=== PATIENT | female | born 1955 | race Caucasian/White ===

== ENCOUNTER 2017-06-25 20:09 | Inpatient (IN) | payer OTHER ==
[~2017-06-25] VITALS: Ht 165.1 cm; Wt 85.5 kg
--- NOTE | 2017-06-25 20:20 | NUR ---
Pt c/o chest pain/pressure radiating to neck chin and right ear. Hx MVP. Pt denies SOB, dizziness, n/v, no other complaints, no distress noted. Pt placed on monitor, EKG -- given to MD, IV 20g right AC, Blood drawn and given to laboratory cureman.
[2017-06-25 20:37] LABS: BASOPHILS % (AUTO) 0.3 % (0.0-2.0); EOSINOPHILS # (AUTO) 0.1 K/uL (0.0-0.7); EOSINOPHILS % (AUTO) 1.9 % (0.0-7.0); HEMATOCRIT 41.9 % (37-47); HEMOGLOBIN 14.1 G/DL (12.0-16.0); LYMPHOCYTES # (AUTO) 2.6 K/UL (0.8-4.8); LYMPHOCYTES % (AUTO) 45.4 % (20.5-51.5); MEAN CORPUSCULAR HEMOGLOBIN 28.7 UUG (27.0-31.0); MEAN CORPUSCULAR HGB CONC 34 g/dL (32.0-37.0); MEAN CORPUSCULAR VOLUME 85.5 FL (81.0-99.0); MONOCYTES # (AUTO) 0.5 K/UL (0.1-1.30); NEUTROPHILS # (AUTO) 2.5 K/UL (1.8-8.9); NEUTROPHILS % (AUTO) 44.4 % (38.5-71.5); PLATELET COUNT (AUTO) 160 K/UL (150-450); WHITE BLOOD COUNT (AUTO) 5.7 K/UL (4.0-11.2)
[2017-06-25 20:45] LABS: CREATININE 1.2 mg/dL (0.6-1.3); POTASSIUM 3.6 mmol/L (3.5-5.1)
[2017-06-25 20:57] LABS: BILIRUBIN,DIRECT 0.1 mg/dL (0.0-0.2); BILIRUBIN,TOTAL 0.3 mg/dL (0.2-1.0)
[2017-06-25 20:58] LABS: TOTAL PROTEIN, SERUM 7.4 g/dL (6.4-8.2)
[2017-06-25] MEDS ORDERED: NITROGLYCERIN OINT 1 GM PACKET TP ONE ×2 (21:30→21:42)
[2017-06-25] MEDS ORDERED: METOPROLOL TARTRATE 50 MG TABLET PO ONE (21:30)
[2017-06-25] MEDS ORDERED: ENOXAPARIN SODIUM 30 MG/0.3 ML DISP.SYRIN SUBCUT ONE (21:30)
[2017-06-25] MEDS ORDERED: CLOPIDOGREL 75 MG TABLET PO ONE (21:30)
[2017-06-25] MEDS ORDERED: ENOXAPARIN SODIUM 80 MG/0.8 ML DISP.SYRIN SQ ONE (21:43)
[2017-06-25] MEDS ORDERED: CLOPIDOGREL 75 MG TABLET ONE (21:43)
[2017-06-25] MEDS ORDERED: METOPROLOL TARTRATE 50 MG TABLET ONE (21:43)
--- NOTE | 2017-06-25 22:09 | NUR ---
Call placed to [facility], Dr. Billings will be paged.
--- NOTE | 2017-06-25 22:18 | NUR ---
Called report to OCHOA Carpenter
--- NOTE | 2017-06-25 22:35 | NUR ---
Pt stated she was still feeling chest pressure but no pain. Placed pt on 2lpm O2 via NC. After 10 minutes, pt states she feels no difference and requested d/c O2.
--- NOTE | 2017-06-25 22:45 | NUR ---
RECEIVED PT FROM ER VIA WHEELCHAIR. PT IS ALERT, AMBULATORY, IN NO ACUTE DISTRESS. PT IS ADMITTED TO TELE UNDER THE CARE OF DR. WELLER. BELONGING LIST ACCOUNTED AND ACKNOWLEDGED BY PATIENT. ADMISSION PROCESS AND CARE PLAN INITIATED. CALLED FOR NEW ADMISSION ORDERS. SAFETY MEASURES IN PLACE, CALL LIGHT WITHIN REACH, BED ALARM ON. WILL CONTINUE TO MONITOR.
[2017-06-25 22:50] VITALS: BP 138/80
[2017-06-25] MEDS ORDERED: ZOLPIDEM 5 MG TABLET PO PRN (23:00)
[2017-06-25] MEDS ORDERED: ONDANSETRON 4 MG/2 ML VIAL IV PRN (23:00)
[2017-06-25] MEDS ORDERED: MAGNESIUM HYDROXIDE 30 ML LIQUID UDC PO PRN (23:00)
[2017-06-25] MEDS ORDERED: MORPHINE SULFATE 2 MG/1 ML DISP.SYRIN IV PRN (23:00)
[2017-06-25] MEDS ORDERED: ALPRAZOLAM 0.25 MG TABLET PO PRN (23:00)
--- NOTE | 2017-06-25 23:00 | NUR ---
PT C/O OF MINIMAL/SLIGHTLY VISIBLE RASH ON BILATERAL THIGH/KNEE AND BILATERAL ARMS. PER PT, NO SENSATION OF ITCHINESS OR PAIN ON THE RASH AREAS. WILL CONTINUE TO MONITOR.
[2017-06-26] MEDS: ACETAMINOPHEN 325 MG TABLET PO PRN ×3 (01:31→15:28)
[2017-06-26] MEDS ORDERED: ACETAMINOPHEN 325 MG TABLET ONE (01:42)
[2017-06-26 04:00] VITALS: BP 101/54
--- NOTE | 2017-06-26 05:52 | NUR ---
PT SLEPT INTERMITTENTLY, IN NO ACUTE DISTRESS. PT C/O OF OCCASIONAL CHEST DISCOMFORT BUT NO CHEST PAIN, NO SOB, NO NAUSEA/VOMITING OR DIZZINESS. PT IS ON TELE - SR. PT KEPT COMFORTABLE WITH WARM BLANKETS, ADDITIONAL PILLOWS, LIGHTS DIMMED, QUIET SURROUNDINGS. CALL LIGHT WITHIN REACH, WILL CONTINUE TO MONITOR.
[2017-06-26 06:30] LABS: BASOPHILS % (AUTO) 0.5 % (0.0-2.0); EOSINOPHILS # (AUTO) 0.1 K/uL (0.0-0.7); EOSINOPHILS % (AUTO) 2.2 % (0.0-7.0); HEMATOCRIT 40.1 % (37-47); HEMOGLOBIN 13.2 G/DL (12.0-16.0); LYMPHOCYTES # (AUTO) 2.8 K/UL (0.8-4.8); LYMPHOCYTES % (AUTO) 51.3 % (20.5-51.5); MEAN CORPUSCULAR HEMOGLOBIN 28.7 UUG (27.0-31.0); MEAN CORPUSCULAR HGB CONC 33 g/dL (32.0-37.0); MONOCYTES # (AUTO) 0.4 K/UL (0.1-1.30); MONOCYTES % (AUTO) 7.9 % (0.0-11.0); NEUTROPHILS % (AUTO) 38.1 % (38.5-71.5); PLATELET COUNT (AUTO) 148 K/UL (150-450); RED BLOOD CELL COUNT(AUTO) 4.61 MIL/UL (4.2-5.4); WHITE BLOOD COUNT (AUTO) 5.3 K/UL (4.0-11.2)
[2017-06-26] MEDS ORDERED: PANTOPRAZOLE SODIUM 40 MG TABLET.DR PO SCH (07:00)
[2017-06-26 07:09] LABS: BILIRUBIN,TOTAL 0.4 mg/dL (0.2-1.0); PHOSPHOROUS 3.2 mg/dL (2.5-4.9); POTASSIUM 3.7 mmol/L (3.5-5.1); TOTAL PROTEIN, SERUM 6.4 g/dL (6.4-8.2)
[2017-06-26 07:13] LABS: THYROID STIMULATING HORMONE 4.358 mIU/mL (0.358-3.740)
--- NOTE | 2017-06-26 08:00 | NUR ---
awake alert and oriented, up and about, states pain discomfort is better, denies of any shortness of breath, no dizziness, explained plan of care- verbalized understanding, tele SR, needs attended, call light within reach
[2017-06-26 08:16] LABS: MAGNESIUM 2.1 mg/dL (1.8-2.4)
[2017-06-26] MEDS ORDERED: ASPIRIN 81 MG TAB.CHEW PO SCH (09:00)
[2017-06-26] MEDS ORDERED: CLOPIDOGREL 75 MG TABLET PO SCH (10:00)
--- NOTE | 2017-06-26 10:33 | NUR ---
seen by Magalie Giron ICU NURSE, c/o headache-medicated with Tylenol 650 mg po, 2d Echo done in the room
[2017-06-26 11:09] VITALS: BP 130/74
--- NOTE | 2017-06-26 11:30 | NUR ---
taking fluids and voiding well, ambulating without any c/o dizziness or pain.
[2017-06-26 13:04] LABS: *BILIRUBIN,URIN NEGATIVE (NEGATIVE); *BLOOD, URINE 1+ (NEGATIVE); *CLARITY,URINE SLIGHTLY CLOUDY (CLEAR); *COLOR,URINE YELLOW (YELLOW); *KETONES,URINE NEGATIVE (NEGATIVE); *PROTEIN,URINE NEGATIVE (NEGATIVE); *UROBILINOGEN,URINE 0.2 E.U./dl (NORMAL); LEUKOCYTE ESTERASE ,URINE 2+ (NEGATIVE); NITRITE, URINE NEGATIVE (NEGATIVE); PH,URINE 5.5 (5.0-8.0); UGLUCOSE NEGATIVE (NEGATIVE)
[2017-06-26 13:14] LABS: BACTERIA,URINE MODERATE /HPF (NONE SEEN); SQUAMOUS EPITHELIAL CELL,UR FEW /HPF (NONE SEEN); WBC,URINE 20-50 /HPF (0-3)
--- NOTE | 2017-06-26 14:00 | NUR ---
ambulated by PT in the hallway- tolerated well
--- NOTE | 2017-06-26 14:45 | NUR ---
order for discharge given- pt informed and in agreement
[2017-06-26 15:06] VITALS: BP 114/69
--- NOTE | 2017-06-26 15:45 | NUR ---
discharge instructions given- verbalized understanding, no home meds, saline lock removed- no swelling/redness noted on site, all belongings with her. Ex to pick her up
--- NOTE | 2017-06-26 16:10 | NUR ---
family here-escorted to car per w/c in stable condition
== END 2017-06-26 16:10 | disposition home or self-care (01) | DRG 203 ==
LOC: ER 20:09 → TELE 22:31 → MED 06-26 11:01
PROVIDERS: ADMIT Internal Medicine; ATTEND Internal Medicine
DX: M94.0 Chondrocostal junction syndrome [Tietze] (principal); E88.09 Other disorders of plasma-protein metabolism, not elsewhere classified; F43.9 Reaction to severe stress, unspecified; M41.9 Scoliosis, unspecified; F32.9 Major depressive disorder, single episode, unspecified; F41.9 Anxiety disorder, unspecified; Z98.82 Breast implant status; G47.9 Sleep disorder, unspecified; Z80.3 Family history of malignant neoplasm of breast; Z82.0 Family history of epilepsy and other diseases of the nervous system; F17.210 Nicotine dependence, cigarettes, uncomplicated; E66.9 Obesity, unspecified; Z68.31 Body mass index [BMI] 31.0-31.9, adult; I34.1 Nonrheumatic mitral (valve) prolapse; R01.1 Cardiac murmur, unspecified
CPT/HCPCS: 36415; 70030-TC; 71010; 83735; 84100; 84443; 85025; 85730; 93005; 93307; A4663; J1650